=== PATIENT | female | born 1945 | race Caucasian/White ===

== ENCOUNTER 2018-07-08 13:17 | Emergency (ER) | payer OTHER ==
--- NOTE | 2018-07-08 14:45 | EDPHY ---
H & P Time Seen by Provider: 07/08/18 13:33 HPI/ROS: 2 days ago this patient suffered a mechanical fall from it uneven sidewalk and she stubbed her toe walking with her and sustained injury to her nose- bridge of nose with moderate pain and persistent swelling. She had brief epistaxis for 20 or 30 min and recurrence of epistaxis for 15 min today that resolved prior to arrival. She also injured her right elbow and describes in achy discomfort is mild in intensity that worsens with pronation supination. Finally, she reports an abrasion to the left knee with minimal discomfort. She came in today by private vehicle due to ongoing symptoms after a conversation with the nursing friend. ROS: Neuro: No LOC from the head injury. No headache. No focal numbness tingling weakness. No confusion. Musculoskeletal: No midline neck or back pain. No other extremity injuries. No pain at the left knee site of the abrasion HEENT: No difficulty breathing here either nostril. No dental injury from the incident. Pulmonary: No chest wall pain or dyspnea. Cardiovascular: No complaints GI: No belly pain, nausea vomiting 7 point review of symptoms is performed and otherwise negative with exception of pertinent positives and negatives listed in HPI and ROS Smoking Status: Never smoked Physical Exam: Physical exam: Vital signs are normal General: Patient is in no acute distress. HEENT: Is no external evidence of trauma on exam except for mild swelling and ecchymosis to the nasal bridge with associated tenderness- Nose moderate to exquisite tenderness to the mid nasal bridge at the site of swelling. This seems to be slight asymmetric swelling to the left with mild ecchymosis. On examination of nares there is no septal hematoma and no active epistaxis. She is able move air through both nares Ears: Clear bilaterally with no hemotympanum. Oropharynx: No dental trauma or malocclusion. No intraoral lacerations. Eyes: Pupils are equal and reactive to light. Extraocular motions are intact. Optic fundi: Clear with no papilledema or hemorrhage. Neck: Trachea is midline with no stridor. The patient has no midline neck tenderness and retains a full range of motion without increase in pain. Lungs: Clear to auscultation bilaterally Cardiac: Regular rate and rhythm no murmur gallop or rub. Chest: Nontender. Abdomen: Soft nontender no organomegaly Back: Nontender Extremities: Atraumatic except for right elbow and abrasion to left knee in the prepatellar region-superficial with no underlying bony tenderness. Right elbow: Patient has tenderness at the proximal radial region. She has increased pain with pronation supination of the right elbow. No significant difficulty with flexion or extension. No olecranon tenderness or swelling. Neuro: GCS of 15. Cranial nerves II through XII intact. No sensory or motor deficits are appreciated. Initial differential diagnosis: Nasal fracture, minor head injury, radial head or neck fracture, elbow contusion, elbow sprain, knee abrasion, knee contusion Constitutional: Initial Vital Signs Temperature (C) 36.6 C 07/08/18 13:28 Heart Rate 110 H 07/08/18 13:28 Respiratory Rate 16 07/08/18 13:28 Blood Pressure 179/86 H 07/08/18 13:28 O2 Sat (%) 97 07/08/18 13:28 O2 Delivery Mode Room Air Allergies/Adverse Reactions: No Known Allergies Allergy (Unverified 03/25/13 11:48) Home Medications: Medication Instructions Recorded CALCIUM + D 600 MG TABLET 03/25/13 Co Q-10 03/25/13 MAGNESIUM 03/25/13 ZINC OXIDE 03/25/13 Estrogen/Progesterone 07/08/18 Thyroid,Pork [ARMOUR THYROID] 07/08/18 MDM/Departure - MDM Diagnostics: Elbow x-rays: Radial neck fracture by my interpretation confirmed with discussion with our radiologist-Dr. Buckley who spontaneously called to discuss this finding. Imaging Results: Imaging Impressions Elbow X-Ray 07/08/18 13:53 Impression: Slightly impacted right radial neck fracture. Findings and recommendations discussed with emergency department physician, Chris Ozuna MD at 2:30 p.m. on July 08, 2018. Final report concurs with initial preliminary interpretation. Imaging: Discussed imaging studies w/ machine scallop cutter Radiologist, I viewed and interpreted images myself ED Course/Re-evaluation: Sling is placed by our tech and I counseled patient regarding her radial neck fracture. She is neurovascular intact post sling application. Wound care to the left knee abrasion by our tech application of a Tegaderm dressing after cleaning. Discussion: Patient with nasal injury consistent with nasal fracture clinically without evidence of septal hematoma or other complicating factors without evidence of significant head injury. She also has radial neck fracture without significant angulation or displacement. Counseled her in some detail regarding her injuries answered all her questions prior to DC home with plan to follow up with ENT and Orthopedics. She understands the need to return emergency department should she develop difficulty breathing through her nose, severe headache or other concerns. - Depart Disposition: Home, Routine, Self-Care Clinical Impression: Radial neck fracture Qualifiers: Encounter type: initial encounter Fracture type: closed Fracture alignment: nondisplaced Laterality: right Qualified Code(s): S52.134A - Nondisplaced fracture of neck of right radius, initial encounter for closed fracture Nasal fracture Qualifiers: Encounter type: initial encounter Fracture type: closed Qualified Code(s): S02.2XXA - Fracture of nasal bones, initial encounter for closed fracture Abrasion of knee, left Qualifiers: Encounter type: initial encounter Qualified Code(s): S80.212A - Abrasion, left knee, initial encounter Condition: Good Instructions: Nasal Fracture (ED), Elbow Fracture (ED), Abrasion (ED) Additional Instructions: Diagnoses: 1. Nasal fracture 2. Elbow fracture at the radial neck 3. Knee abrasion Plan: Ibuprofen Tylenol for discomfort Ice to your nose 10-15 minutes to 3 times a day for the next 2-3 days You can leave the Tegaderm dressing underneath for the next 2-5 days. After it starts to peel off you can remove it and clean your abrasion and then reapply similar dressing available at pharmacies. Call your orthopedic physician of her choice to arrange follow-up appointment for a recheck available sometime within the next 3-7 days Call the ENT physician listed below to arrange a evaluation of your nose sometime within the next 3-7 days if you feel like after swelling is resolved to have residual cosmetic changes that bother you. Referrals: CELIO LAGOS [Primary Care Provider] - As per Instructions Jevon Schaeffer MD [Medical Doctor] - As per Instructions Kain Mon MD [Medical Doctor] - As per Instructions
[2018-07-08 15:02] VITALS: BP 147/80
== END 2018-07-08 14:56 | disposition home or self-care (01) ==
LOC: CED 13:17
DX: S52.134A Nondisplaced fracture of neck of right radius, initial encounter for closed fracture (principal); S02.2XXA Fracture of nasal bones, initial encounter for closed fracture; S80.212A Abrasion, left knee, initial encounter; W19.XXXA Unspecified fall, initial encounter; Y92.480 Sidewalk as the place of occurrence of the external cause; Y93.01 Activity, walking, marching and hiking; Y99.8 Other external cause status
CPT/HCPCS: 73080; 99283; A4565